=== PATIENT | male | born 1955 | race Caucasian/White ===

== ENCOUNTER 2019-09-23 17:48 | Emergency (ER) | payer MEDICARE, MEDICAID ==
[~2019-09-23 17:48] MED LIST: AMIO200T61 PO; CARV-50 PO; COU4T PO; LEVO150T61 PO; LISI30TA39 PO; ROSU10TA2 PO; TRIA1TAB5 PO
[2019-09-23 18:15] LABS: HEMOGLOBIN 17.2 g/dl (14.0-17.9); MEAN CORPUSCULAR HEMOGLOBIN 27.9 PG (27.0-31.0); RED BLOOD COUNT 6.16 X10'6 (4.70-6.10)
[2019-09-23 18:17] LABS: HEMATOCRIT 53.1 % (42.0-52.0); MEAN CORPUSCULAR HGB CONC 32.3 g/dL (33.0-36.5); MEAN CORPUSCULAR VOLUME 86.3 FL (78-98); MEAN PLATELET VOLUME 8.9 FL (7.4-10.4); PLATELET COUNT 148 X10'3 (140-440); RED CELL DISTRIBUTION WIDTH 15.4 % (11.5-14.5); WHITE BLOOD COUNT 8.3 X10'3 (4.5-11.0)
[2019-09-23 18:26] LABS: ALANINE AMINOTRANSFERASE 22 U/L (12-78); ALBUMIN 3.3 G/DL (3.4-5.0); ALBUMIN/GLOBULIN RATIO 0.8 (1.1-1.5); ALKALINE PHOSPHATASE 60 IU/L (46-116); ANION GAP 5 (8-16); ASPARTATE AMINO TRANSFERASE 25 U/L (10-37); BILIRUBIN,TOTAL 1.3 MG/DL (0.1-1.0); BLOOD UREA NITROGEN 27 MG/DL (7-18); BUN/CREATININE RATIO 21.3 (5.4-32.0); CHLORIDE 103 MMOL/L (99-107); CREATININE 1.27 MG/DL (0.60-1.10); GLUCOSE 102 MG/DL (70-104); POTASSIUM 4.2 MMOL/L (3.5-5.1); SODIUM 138 MMOL/L (135-145); TOTAL CARBON DIOXIDE 30.1 MMOL/L (24-32); TOTAL PROTEIN 7.4 G/DL (6.4-8.2); eGFR 57 ML/MIN
--- NOTE | 2019-09-23 18:28 | NUR ---
attempted to call to triage x1. no reply.
[2019-09-23 18:37] LABS: MAGNESIUM 1.8 MG/DL (1.5-2.4)
[2019-09-23 20:03] LABS: PLATELET ESTIMATE NORMAL; TOTAL CELLS COUNTED 100
== END 2019-09-23 19:32 | disposition left against medical advice (07) ==
LOC: ER 17:48
DX: R07.9 Chest pain, unspecified (principal); I49.8 Other specified cardiac arrhythmias; Z95.0 Presence of cardiac pacemaker; Z53.21 Procedure and treatment not carried out due to patient leaving prior to being seen by health care provider
CPT/HCPCS: 36415; 71045; 80053; 83735; 83880; 84439; 84443; 84484; 85025; 93005

== ENCOUNTER 2020-12-05 06:09 | Day surgery (SDC) | payer BC, MEDICAID ==
[2020-12-04 16:01] LABS: BASOPHILS # (AUTO) 0.1 X10'3 (0-0.2); EOSINOPHILS # (AUTO) 0.2 X10'3 (0-0.9); LYMPHOCYTES # (AUTO) 1.6 X10'3 (1.1-4.8); MONOCYTES # (AUTO) 0.7 X10'3 (0-0.9)
[2020-12-04 16:03] LABS: BASOPHILS % (AUTO) 0.7 % (0-1); EOSINOPHILS % (AUTO) 2.9 % (0-6); HEMATOCRIT 55.4 % (42.0-52.0); HEMOGLOBIN 17.5 g/dl (14.0-17.9); LYMPHOCYTES % (AUTO) 20.4 % (21-51); MEAN CORPUSCULAR HEMOGLOBIN 25.7 PG (27.0-31.0); MEAN CORPUSCULAR HGB CONC 31.5 g/dL (33.0-36.5); MEAN CORPUSCULAR VOLUME 81.5 FL (78-98); MEAN PLATELET VOLUME 9.4 FL (7.4-10.4); MONOCYTES % (AUTO) 9.3 % (2-12); NEUTROPHILS # (AUTO) 5.1 X10'3 (1.8-7.7); NEUTROPHILS % (AUTO) 66.7 % (42-75); PLATELET COUNT 138 X10'3 (140-440); RED CELL DISTRIBUTION WIDTH 19.6 % (11.5-14.5); WHITE BLOOD COUNT 7.7 X10'3 (4.5-11.0)
[2020-12-04 16:09] LABS: ALBUMIN 3.4 G/DL (3.4-5.0); ANION GAP 8 (8-16); BLOOD UREA NITROGEN 26 MG/DL (7-18); BUN/CREATININE RATIO 18.3 (5.4-32.0); CALCIUM 8.8 MG/DL (8.5-10.1); CHLORIDE 103 MMOL/L (99-107); CREATININE 1.42 MG/DL (0.60-1.10); GLUCOSE 124 MG/DL (70-104); POTASSIUM 4.3 MMOL/L (3.5-5.1); SODIUM 143 MMOL/L (135-145); TOTAL CARBON DIOXIDE 32.2 MMOL/L (24-32); eGFR 50 ML/MIN
[2020-12-04 16:11] LABS: PARTIAL THROMBOPLASTIN TIME 30 SECONDS (22-32)
[2020-12-04 16:57] LABS: ANISOCYTOSIS 2+; ELLIPTOCYTES 1+; HYPOCHROMASIA 1+; PLATELET ESTIMATE DECREASED
[2020-12-05] VITALS (9 sets, daily range): BP systolic 89–111; BP diastolic 48–67
[~2020-12-05] VITALS: Ht 172.7 cm; Wt 125.5 kg
[2020-12-05] MEDS ORDERED: CLINDAMYCIN/D5W 900mg/50ml 50 ML IV ONE (06:25)
[2020-12-05] MEDS ORDERED: normal saline 1000ml 1,000 ML IV SCH (06:30)
[2020-12-05] MEDS ORDERED: APIX5TAB3 PO (06:34)
[2020-12-05] MEDS ORDERED: LAN0.125T PO (06:34)
[2020-12-05] MEDS ORDERED: CARV25TA56 PO (06:34)
[2020-12-05] MEDS ORDERED: LEVO175T7 PO (06:34)
[2020-12-05] MEDS ORDERED: LISI40TA13 PO (06:34)
[2020-12-05] MEDS ORDERED: fentaNYL/PF 50MCG/1 ML 2ML syringe ONE (07:32)
[2020-12-05] MEDS ORDERED: midazolam 1 mg/ML 2ml injection ONE ×2 (07:32→08:38)
[2020-12-05] MEDS ORDERED: clindamycin phosphate 150mg/ml inj. ONE (07:32)
[2020-12-05] MEDS ORDERED: LIDOcaine 1% W/epiNEPHrine 1:100,000 20ml vial ONE ×2 (07:33→08:38)
[2020-12-05] MEDS ORDERED: HYDROcodone/acetaminophen 5mg/325mg tablet PO PRN (09:45)
[2020-12-05] MEDS ORDERED: HYDROcodone/acetaminophen 10/325mg tab PO PRN (09:45)
[2020-12-05] MEDS ORDERED: normal saline 500ml IV soln 500 ML IV SCH (10:01)
[2020-12-05] MEDS ORDERED: vancomycin/NS 1 GM ADD-VANTAGE 250 ML X 1 DOSE IV ONE (11:00)
--- NOTE | 2020-12-05 11:30 | NUR ---
Pt ate 100% of breakfast tray. 350ml oral fluid intake.
--- NOTE | 2020-12-05 13:10 | NUR ---
Pt ambulated to bathroom, denies cp, denies sob. Pt site stable, DCD&I.
== END 2020-12-05 14:00 | disposition home or self-care (01) ==
LOC: SSTAY O 06:09
PROVIDERS: ATTEND Internal Medicine Cardiovascular Disease
DX: Z45.02 Encounter for adjustment and management of automatic implantable cardiac defibrillator (principal); I42.9 Cardiomyopathy, unspecified; Z95.810 Presence of automatic (implantable) cardiac defibrillator; I48.91 Unspecified atrial fibrillation; Z79.01 Long term (current) use of anticoagulants; I10 Essential (primary) hypertension; I25.10 Atherosclerotic heart disease of native coronary artery without angina pectoris
CPT/HCPCS: 33263; 36415; 80048; 85025; 85610; 85730; 93005; C1721; C1894; J2250; J3010; J3370; J3490; J7030; 33228; 85008; 99152; 99153; A4620; A6258; A6449